=== PATIENT | female | born 1945 | race Caucasian/White ===

== ENCOUNTER 2021-08-10 10:07 | Outpatient (CLI) | payer MEDICARE, SELFPAY | END 2021-08-10 23:59 | disposition home or self-care (01) | PROVIDERS: PCP Internal Medicine; Referring Provider Psychiatry & Neurology Neurology; Visit Provider Psychiatry & Neurology Neurology | DX: I63.9 Cerebral infarction, unspecified (principal) | CPT/HCPCS: 36415 ==

== ENCOUNTER → 2022-10-28 | Outpatient (CLI) | payer MEDICARE, SELFPAY ==
--- NOTE | 2022-10-28 12:46 | CT_ITS ---
STUDY: CT ABDOMEN WITH AND WITHOUT CONTRAST REASON FOR EXAM: Female, 77 years old. Follow-up for known adrenal mass. RADIATION DOSAGE (If Supplied By Facility): CTDIvol = ( 24.18 ) mGy, DLP = ( 1317.56 ) mGycm TECHNIQUE: Transaxial images were obtained pre and post I.V. administration of IV 100mL Isovue-300, and oral contrast. Sagittal and coronal images were reconstructed. Individualized dose optimization techniques were used for this CT. COMPARISON: None. FINDINGS: Minimal degree of increased linear markings at the lung bases suggestive of linear atelectasis. Coronary artery calcification. Calcification of the mitral valve annulus. There is decreased attenuation of the liver consistent with steatosis. Normal gallbladder and extrahepatic biliary system. Normal spleen. Normal pancreas. There is a 1.6 on a 1.5 cm hypodense nodule in the left adrenal gland. Punctate calcification is seen. 9.2 mm cyst in the posterior upper pole of the right kidney. Normal left kidney. There is a small hiatal hernia. Normal small intestine. Normal colon. The appendix is visualized and appears normal. There is scattered atherosclerotic calcification of the abdominal aorta, without a demonstrated aneurysm. Normal inferior vena cava. Normal retroperitoneum. There is a small umbilical hernia containing fat. Normal osseous structures. CT/Abdomen W/WO IV Contrast IMPRESSION: Diffuse fatty infiltration of the liver. 1.6 cm x 1.5 cm well-defined hypodense nodule in the left adrenal gland with punctate calcification. Small hiatal hernia. Electronically Signed: Richie Galarza MD at 14:45 EDT ,
[2022-10-28 13:37] LABS: CREATININE FINGERSTICK < 0.9 mg/dL (0.55-1.02); EGFR FINGERSTICK > 60.0000 mL/min (>60)
== END | disposition home or self-care (01) ==
PROVIDERS: PCP Internal Medicine; Referring Provider Nurse Practitioner Family; Visit Provider Nurse Practitioner Family
DX: E27.8 Other specified disorders of adrenal gland (principal)
CPT/HCPCS: 74170; Q9967

== ENCOUNTER → 2023-04-29 | Outpatient (CLI) | payer MEDICARE, SELFPAY ==
--- NOTE | 2023-04-29 12:44 | CDU_ITS ---
Reason For Study: HX Ischemic Stroke Rt. Velocities/BP Lt. Velocities/BP Prox CCA 80.6/24.5 cm/sec. Prox CCA 83.1/28.1 cm/sec. Mid CCA 60.8/26.7 cm/sec. Mid CCA 63.9/23.2 cm/sec. Dist CCA 64.1/25.6 cm/sec. Dist CCA 61.0/27.0 cm/sec. Prox ICA 60.7/23.0 cm/sec. Prox ICA 119.8/41.3 cm/sec. Mid ICA 84.4/36.2 cm/sec. Mid ICA 96.1/34.0 cm/sec. Dist ICA 66.4/27.7 cm/sec. Dist ICA 69.5/28.9 cm/sec. Rt. ICA/CCA = 1.4. Lt. ICA/CCA = 1.9. Prox ECA 84.4/21.1 cm/sec. Prox ECA 57.2/10.6 cm/sec. Rt. Vert. 31.5/9.9 cm/sec. Lt. Vert. 46.8/16.0 cm/sec. Right Extracranial There is homogeneous, smooth atherosclerotic plaque noted in the right common carotid artery. There is heterogeneous, irregular atherosclerotic plaque noted in the right internal carotid artery. There is homogeneous, smooth atherosclerotic plaque noted in the right external carotid artery. Antegrade flow is noted in the right vertebral artery. Left Extracranial There is homogeneous, smooth atherosclerotic plaque noted in the left common carotid artery. There is heterogeneous, irregular atherosclerotic plaque noted in the left internal carotid artery. There is homogeneous, smooth atherosclerotic plaque noted in the left external carotid artery. Antegrade flow is noted in the left vertebral artery. Procedure Carotid Duplex [id number]. This is a Carotid Duplex examination using B-mode, color flow and specral Doppler. The exam was diagnostic. Exam performed in department. VL/Carotid Duplex Ultrasound Interpretation Summary Mild (<50%) stenosis right extracranial internal carotid. Mild (<50%) stenosis left extracranial internal carotid. Patent and antegrade vertebrals bilaterally. Ordering Physician: Bar Meek Referring Physician: Monica Munoz Performed By: Chris Michael RVT
--- OUTSIDE RECORDS SUMMARY | 2023-04-29 13:03 | XMS RPT_ITS | CCD ---
Author Name Unknown Address [address] [place] [address] Organization [facility] Care Team Providers Care Service Planner Name Role Phone MICHAEL GOMES MD Consulting Unavailable LATOUF, MICHAEL WIN Attending Unavailable LATOUF, MICHAEL WIN Admitting Unavailable LATOUF, MICHAEL WIN Primary Care Unavailable PROVIDER, UNKNOWN Consulting Unavailable PROVIDER, UNKNOWN Consulting Unavailable PROVIDER, UNKNOWN Consulting Unavailable LATOUF, MICHAEL WIN Consulting Unavailable LATOUF, MICHAEL WIN Attending Unavailable LATOUF, MICHAEL WIN Admitting Unavailable LATOUF, MICHAEL WIN Primary Care Unavailable PROVIDER, UNKNOWN Consulting Unavailable PROVIDER, UNKNOWN Consulting Unavailable PROVIDER, UNKNOWN Consulting Unavailable LATOUF, MICHAEL WIN Attending Unavailable LATOUF, MICAHEL WIN Admitting Unavailable LATOUF, MICHAEL WIN Primary Care Unavailable LATOUF, MICHAEL WIN Consulting Unavailable PROVIDER, UNKNOWN Consulting Unavailable PROVIDER, UNKNOWN Consulting Unavailable PROVIDER, UNKNOWN Consulting Unavailable LATOUF, MICHAEL WIN Consulting Unavailable LATOUF, MICHAEL WIN Attending Unavailable LATOUF, MICHAEL WIN Admitting Unavailable LATOUF, MICHAEL WIN Primary Care Unavailable PROVIDER, UNKNOWN Consulting Unavailable PROVIDER, UNKNOWN Consulting Unavailable PROVIDER, UNKNOWN Consulting Unavailable ELISEO, MICHAEL WIN Consulting Unavailable YONIS WOODALL Admitting Unavailable YONIS WOODALL Primary Care Unavailable YONIS WOODALL Attending Unavailable PROVIDER, UNKNOWN Consulting Unavailable PROVIDER, UNKNOWN Consulting Unavailable PROVIDER, UNKNOWN Consulting Unavailable LATOUKoby, MICHAEL WIN Consulting Unavailable YONISMARICELN Attending Unavailable YONIS, JOSE C Primary Care Unavailable YONIS, JOSE C Admitting Unavailable PROVIDER, UNKNOWN Consulting Unavailable PROVIDER, UNKNOWN Consulting Unavailable PROVIDER, UNKNOWN Consulting Unavailable Problems Problem Classification Problem Date Documented Da te Episodic/Chronic Diabetes mellitus with complications (5 sources) Type 2 diabetes mellitus with hyperglycemia; Translations: [Type 2 diabetes mellitus with other circulatory complications] Onset: 06-11-2022 Chronic Disorders of lipid metabolism (1 source) Hyperlipidemia, unspecified; Translations: [Hyperlipidemia, unspecified] Onset: 03-17-2023 Chronic Essential hypertension (1 source) Essential (primary) hypertension; Translations: [Essential (primary) hypertension] Onset: 03-17-2023 Chronic Other endocrine disorders (3 sources) Other specified disorders of adrenal gland; Translations: [Other specified disorders of adrenal gland] Onset: 11-08-2022 Chronic Results Test Name Value Interpretation Reference Range Facil ity Encounters Encounter Date Encounter Type Care Provider Facility Start: 03-17-2023 End: 03-17[facility] Start: 03-15-2023 End: 03-15-[facility]23 [facility] Start: 11-11-2022 End: 11-11-2022 [facility] Start: 11-08-2022 End: 11-08-2022 [facility] Start: 10-14-2022 End: 10-14-2022 [facility] Start: 06-11-2022 End: 06-11-2022 [facility] Payers Date Payer Category Payer Unknown [id number] 1945 Unknown [id number] 1945 Unknown [id number] .16.8 [id number] 1945 Unknown [id number] 2.16.8 [id number] 1945 Unknown [id number] 2.16.8 [id number] 1945 Unknown [id number] 2.16.84 [id number] Medicare [id number] Summary Purpose Family History No Family History Records FoundNo Family History Records FoundNo Family History Records Found Advance Directives No Advanced Directives Records FoundNo Advanced Directives Records FoundNo Advanced Directives Records Found Additional Source Comments INFORMATION SOURCE (unrecogn ized section and content) DATE CREATED AUTHOR AUTHOR'S ORGANIZ ATION 06/14/2021 [facility] DATE CREATED AUTHOR AUTHOR'S ORGANIZ ATION 03/19/2023 [facility] FOR RECORDS PERTAINING TO PATIENTS WHO ARE OR HAVE BEEN ENROLLED IN A CHEMICAL DEPENDENCY/SUBSTANCEABUSE PROGRAM, SOME INFORMATION MAY BE OMITTED. This clinical summary was aggregated from multiple sources. Caution should be exercised in using it in the provision of clinical care. This summary normalizes information from multiple sources, and as a consequence, information in this document may materially change the coding, format and clinical context of patient data. In addition, data may be omitted in some cases. CLINICAL DECISIONS SHOULD BE BASED ON THE PRIMARY CLINICAL RECORDS. [email or web address] [email or web address] [facility]. provides no warranty or guarantee of the accuracy or completeness of information in this document.
== END | disposition home or self-care (01) ==
PROVIDERS: PCP Internal Medicine; Referring Provider Psychiatry & Neurology Neurology; Visit Provider Psychiatry & Neurology Neurology
DX: Z86.73 Personal history of transient ischemic attack (TIA), and cerebral infarction without residual deficits (principal)
CPT/HCPCS: 93880